=== PATIENT | male | born 1995 | race Caucasian/White ===

== ENCOUNTER 2016-08-06 01:48 | Emergency (ER) | payer BC, OTHER ==
[2016-08-06] MEDS ORDERED: Famotidine In NaCl 20 mg/50 ml Premix Bag ONE (02:28)
[2016-08-06] MEDS ORDERED: Ondansetron HCl/PF 4 MG/2 ML Vial ONE (02:28)
[2016-08-06 02:46] LABS: #Basophils 0.1 thou/uL (0.0-0.2); #Eosinphils 0.1 thou/uL (0.0-0.7); #Lymphocytes 0.7 thou/uL (1.20-3.40); #Monocytes 0.7 thou/uL (0.11-0.59); #Neutrophils 12.2 thou/uL (1.40-6.50); %Basophils 0.4 % (0.0-1.0); %Eosinophils 0.5 % (0.0-10.0); %Monocytes 5.1 % (0.0-10.0); Hematocrit 52.4 % (42.0-52.0); Mean Platelet Volume 7.3 fL (7.4-10.4); Red Blood Cell (RBC) Count 6.03 mill/uL (4.70-6.10); White Blood Cell (WBC) Count 13.8 thou/uL (4.8-10.8)
[2016-08-06] MEDS ORDERED: Promethazine HCl 25 MG/ML VIAL ONE (02:50)
[2016-08-06 02:56] LABS: ALT (SGPT) 17 U/L (0-55); AST (SGOT) 17 U/L (5-34); Alkaline Phosphatase 72 U/L (40-150); Anion Gap 17 mmol/L (10-20); BUN (Urea Nitrogen) 15 mg/dL (8.9-20.6); Bilirubin, Total 1.3 mg/dL (0.2-1.2); Calc. Creatinine Clearance 0 mL/min (70-130); Calcium 10.3 mg/dL (7.8-10.44); Carbon Dioxide 18 mmol/L (22-29); Chloride 108 mmol/L (98-107); Estimated GFR-MDRD Greater than 90; Globulin 3.3 g/dL (2.4-3.5); Lipase 21 U/L (8-78); Protein, Total 8.3 g/dL (6.0-8.3)
[2016-08-06 03:13] LABS: Blood, Urine Negative (Negative); Glucose, Urine (Dipstick) Negative (Negative); Ketone, Urine > or equal to 80 mg/dL (Negative); Nitrite Negative (Negative); Protein, Urine (Dipstick) 30 mg/dL (Neg-Trace); Urobilinogen 0.2 mg/dL (0.2-1.0)
[2016-08-06 03:15] LABS: Bilirubin Negative (Negative)
[2016-08-06 03:31] LABS: RBC/HPF 0-3 HPF (0-3); Squamous Epithelial 0-3 HPF (0-3); WBC/HPF 0-3 HPF (0-3)
--- NOTE | 2016-08-06 04:14 | ERRECORD ---
[facility] EMERGENCY RECORD HPI NAUSEA/VOMITING/DIARRHEA (02:11 JPIP) CHIEF COMPLAINT: Patient presents for evaluation of nausea, Patient presents for evaluation of vomiting, Number of times: 5-6, Denies diarrhea, Patient presents for evaluation of hematemesis, Number of times: 2-3, described as streaks of blood. HISTORIAN: History provided by patient. LOCATION MALE: Symptoms are generalized. QUALITY: Pain is dull in nature, described as aching, described as cramping. SEVERITY: Current severity of pain rated as 7/10. TIME COURSE: Sudden onset of symptoms, Date and time of onset was approx 2200, There has been no change in the patient's symptoms over time, are constant. ASSOCIATED WITH MALE: Associated with chills, No associated diarrhea, Associated with fever, subjective, Associated with loss of appetite, Associated with nausea, Associated with vomiting, Number of times: 5-6. EXACERBATED BY: Patient's condition exacerbated by nothing. RELIEVED BY: Patient's condition relieved by nothing. ROS (02:12 JPIP) CONSTITUTIONAL: Historian reports chills, reports fatigue, reports fever, reports malaise. EYES: Historian denies eye pain, denies eye redness. ENT: Historian denies dysphagia, denies rhinorrhea, denies sinus pain, denies sore throat. CARDIOVASCULAR: Historian denies chest pain, denies dyspnea on exertion. RESPIRATORY: Historian denies cough, denies shortness of breath. GI: Historian reports abdominal pain, denies diarrhea, reports hematemesis, reports nausea, reports vomiting. MUSCULOSKELETAL: Historian reports myalgias. SKIN: Historian denies rash, denies skin changes, denies skin lesions. NEUROLOGIC: Historian denies confusion, denies dizziness, denies lethargy. NOTES: All systems reviewed, negative except as described above. PAST MEDICAL HISTORY MEDICAL HISTORY: Notes: PT DENIES MEDICAL HX. (02:00 RAWI) MALE SURGICAL HISTORY: PT DENIES SURGICAL HX. (02:00 RAWI) PSYCHIATRIC HISTORY: Notes: ANXIETY, DEPRESSION. (02:00 RAWI) SOCIAL HISTORY: Patient drinks socially, Patient currently uses drugs, abuses marijuana, Patient currently &a-1R&a+25V*p+0X*[id number]*c202B*c15G*c2P*p-0X&a-25V&a+1R Name: Sarmad Vears : 1995 M21 MedRec: [id number] AcctNum: [id number] Prepared: Bernadette Aug 06, 2016 04:12 by Interface Page 1 of 4 pMD [facility] EMERGENCY RECORD uses tobacco, smokes cigarettes, 1/2 PPD. (02:00 RAWI) NOTES: Nursing records reviewed, Medication list reviewed. (02:14 JPIP) KNOWN ALLERGIES SEROquel CURRENT MEDICATIONS (02:02 RAWI) None VITAL SIGNS VITAL SIGNS: BP: 142/69, Pulse: 97, Resp: 18, Temp: 98.3 (Oral), Pain: 7, O2 sat: 98, Time: 08/06/2016 01:56. (01:56 RAWI) BP: 125/66, Pulse: 86, Resp: 16, O2 sat: 94 on Room Air, Time: 08/06/2016 03:00. (03:00 RAWI) BP: 108/48, Pulse: 94, Resp: 16, Temp: 100.5, Pain: 0, O2 sat: 98 on RA, Time: 08/06/2016 04:03. (04:03 RAWI) PHYSICAL EXAM (02:13 JPIP) CONSTITUTIONAL: Vital signs reviewed, Patient afebrile, Pulse normal, Blood pressure normal, Respiratory rate normal, Patient appears, ill appearing, Patient appears in pain, in mild pain distress, Patient alert and oriented to person, place and time. HEAD: Head exam included findings of head atraumatic, normocephalic. EYES: Eye exam included findings of eyelids normal to inspection, Conjunctiva normal, Sclera normal, no periorbital ecchymosis, no periorbital edema, no periorbital erythema. ENT: Pharynx exam normal, not injected, no swelling, symmetrical, Uvula exam normal, midline, no edema, Mouth exam included findings of, mucous membranes dry, mucous membranes tacky. NECK: Neck exam included findings of normal range of motion, Trachea midline, no cervical adenopathy, no tenderness. RESPIRATORY CHEST: Respiratory exam included findings of no respiratory distress, Breath sounds clear, No wheezing, No rales, No rhonchi, Breath sounds not absent, Breath sounds not diminished. CARDIOVASCULAR: Cardiovascular exam included findings of, rate tachycardic, rhythm regular, Heart sounds normal, no murmurs, no rub. ABDOMEN MALE: Abdominal exam included findings of abdomen tender, to the epigastric region, mild intensity, Bowel sounds, hypoactive, Liver normal, Spleen normal, no distension, no mass, no pulsatile masses, no peritoneal signs, no rigidity, no guarding, no rebound. BACK: no costovertebral angle tenderness. UPPER EXTREMITY: Upper extremity exam included findings of inspection normal, Range of motion normal. NEURO: Luis Enrique coma scale 15, Neuro exam findings include patient oriented to person, place and time, no focal motor deficits. &a-1R&a+25V*p+0X*n1928V*c202B*c15G*c2P*p-0X&a-25V&a+1R Name: Sarmad Veras : 1995 M21 MedRec: [id number] AcctNum: [id number] Prepared: [facility] Aug 06, 2016 04:12 by Interface Page 2 of 4 D [facility] EMERGENCY RECORD SKIN: Skin exam included findings of skin, Skin hot, dry, and normal in color, no rash. LYMPHATIC: Lymphatic exam included findings of cervical nodes normal, Submandibular normal. PSYCHIATRIC: Psychiatric exam included findings of patient oriented to person place and time, Normal affect. MEDICATION ADMINISTRATION SUMMARY Drug Name: Robinul injection, Dose Ordered: 0.2 mg, Route: IV Push, Status: Canceled, Time: 02:32 08/06/2016, Drug Name: Normal Saline, Dose Ordered: 1000 mL/hr, Route: IV Fluid Infusion, Status: Given, Time: 03:25 08/06/2016, Drug Name: *phenergan, Dose Ordered: * , Route: IV Fluid Infusion, Status: Given, Time: 02:56 08/06/2016, Drug Name: famotidine (PF)-NaCl (iso-os), Dose Ordered: 20 mg, Route: IV Piggy Back, Status: Given, Time: 02:45 08/06/2016, Drug Name: Zofran intravenous, Dose Ordered: 4 mg, Route: IV Push, Status: Given, Time: 02:42 08/06/2016, Drug Name: Normal Saline, Dose Ordered: 1000 mL/hr, Route: IV Fluid Infusion, Status: Given, Time: 02:41 08/06/2016, *Additional information available in notes, Detailed record available in Medication Service section. DOCTOR NOTES RE-EVALUATION: Routine re-evaluation, after administration of antiemetics, Routine re-evaluation, after administration of IV fluids, The patient's condition has improved. (03:42 JPIP) TEXT: Emesis with small hematemesis, emesis present in an emesis bag had no significant blood and there were no coffee grounds. (03:45 JPIP) PROBLEM LIST No recorded problems DIAGNOSIS (03:45 JPIP) FINAL: PRIMARY: Nausea with vomiting, ADDITIONAL: HEMATEMESIS. PRESCRIPTION (03:16 JPIP) Zofran ODT: TABLET, RAPID DISSOLVE : 4 mg : ORAL : Quantity: 1 Unit: tab(s) Route: ORAL Schedule: every 6 hours PRN Dispense: 10 May substitute. Refills: No Refills . NOTES: for nausea No refills. DISPOSITION PATIENT: Disposition Type: Discharge, Disposition: *Discharge Home, Condition: Improved. (03:45 JPIP) &a-1R&a+25V*p+0X*f7924X*c202B*c15G*c2P*p-0X&a-25V&a+1R Name: Sarmad Veras : 1995 M21 MedRec: [id number] AcctNum: [id number] Prepared: WedAug 06, 2016 04:12 by Interface Page 3 of 4 pMD [facility] EMERG[facility] RECORD Patient left the department. (04:09 RAWI) Estevez: DESTINY=DO Dove Joseph RAWI=CECELIA [place], [place] &a-1R&a+25V*p+0X*x5858S*c202B*c15G*c2P*p-0X&a-25V&a+1R Name: Sarmad Veras : 1995 M21 MedRec: [id number] AcctNum: [id number] Prepared: WedAug 06, 2016 04:12 by Interface Page 4 of 4 pMD MTDD
--- NOTE | 2016-08-06 04:30 | PICIS ---
[facility] EMERGENCY RECORD TRIAGE (01:55 RAWI) PATIENT: NAME: Sarmad Veras, AGE: 21, GENDER: male, : Sun 1995, TIME OF GREET: WedAug 06, 2016 01:49, PREFERRED LANGUAGE: Hungarian, ECODE BILLING MAP: [facility], Zip Code: [address], KG WEIGHT: 62.6 (est.), PHONE: , , , PERSON ID: [id number], PAYMENT: [employer]. (01:55 RAWI) ADMISSION: URGENCY: 3 Urgent, ADMISSION SOURCE: Home, TRANSPORT: Walk-in, BED: TRIAGE. (:55 RAWI) IMMUNIZATIONS: Flu vaccine not up to date, Tetanus immunization up to date, Pneumococcal vaccine not up to date. (02:00 RAWI) SIRS SCORING: Heart Rate 55-109 (0), Temp range 96.8-101.1 (0), respiratory rate 12-24 (0), Latest WBC 3-14.9 (0), Mental Status altered: no (0). (02:00 RAWI) TRIAGE SCREENING: Patient denies suicidal ideation, Patient denies presence of domestic violence. (02:00 RAWI) TREATMENTS IN PROGRESS: Treatments given Prehospital: NONE. (02:00 RAWI) PROVIDERS: TRIAGE NURSE: Cary Edge RN. (01:55 RAWI) KNOWN ALLERGIES SEROquel CURRENT MEDICATIONS (02:02 RAWI) None VITAL SIGNS VITAL SIGNS: BP: 142/69, Pulse: 97, Resp: 18, Temp: 98.3 (Oral), Pain: 7, O2 sat: 98, Time: 08/06/2016 01:56. (01:56 RAWI) BP: 125/66, Pulse: 86, Resp: 16, O2 sat: 94 on Room Air, Time: 08/06/2016 03:00. (03:00 RAWI) BP: 108/48, Pulse: 94, Resp: 16, Temp: 100.5, Pain: 0, O2 sat: 98 on RA, Time: 08/06/2016 04:03. (04:03 RAWI) NURSING ASSESSMENT: ABDOMEN (02:02 RAWI) CONSTITUTIONAL: Patient arrives ambulatory, Gait steady, History obtained from patient, Patient appears, uncomfortable, Patient cooperative, Patient alert, Oriented to person, place and time, Skin warm, Skin dry, Skin normal in color, Mucous membranes pink, Mucous membranes moist, Patient is well-groomed. PAIN: diffusely, Onset of pain 08/05/2016 20:00. ABDOMEN: Abdomen soft, tender, Bowel sound normal, Associated with nausea, Associated with vomiting, "EVERY 30-45 MINUTES SINCE 2230. IT WAS BRIGHT RED AT FIRST THEN IT WAS DARK RED", Notes: PT NOTES DRINKIN MORE ALCOHOL THIS WEEK THAN NORMAL. "A 12 PACK AND HALF A BOTTLE OF VODKA" PT GUARDING AND BODY SHAKING. SAFETY: Side rails up, Cart/Stretcher in lowest position, Family &a-1R&a+25V*p+0X*v0820T*c202B*c15G*c2P*p-0X&a-25V&a+1R Name: Sarmad Veras : 1995 M21 MedRec: [id number] AcctNum: [id number] Prepared: [facility] Aug 06, 2016 04:17 by Interface Page 1 of 11 pMD [facility] EMERGENCY RECORD at bedside, Call light within reach, Hospital ID band on. NURSING PROCEDURE: DISCHARGE NOTE (04:03 RAWI) DISCHARGE: Patient discharged to home, ambulating without assistance, family driving, accompanied by parent, Summary of Care printed/ provided, Discharge instructions given to patient, Discharge instructions given to mother, Simple or moderate discharge teaching performed, Prescriptions given and instructions on side effects given, Above person(s) verbalized understanding of discharge instructions and follow-up care, Patient treated and evaluated by physician. BELONGINGS: Belongings remain with patient, Valuables remain with patient. NOTES: Patient tolerated procedure well. VITAL SIGNS: BP: 108, / 48, Pulse: 94, Resp: 16, Temp: 100.5, Pain: 0, O2 sat: 98, on: RA. NURSING PROCEDURE: IV (02:35 RAWI) IV SITE 1: IV established, to the left forearm, using an 18 gauge catheter, in three attempts, Saline lock established, Labs drawn at time of placement, labeled in the presence of the patient and sent to lab, Notes: ESTABLISHED BY SHAKILA RAI. NURSING PROCEDURE: URINE COLLECTION (02:30 RAWI) PATIENT IDENTIFIER: Patient actively involved in identification process, Patient's identity verified by patient stating name, Patient's identity verified by patient stating date. URINE COLLECTION MALE: Urine collection indicated for LABS, Urine collected by void, output amount (mL) 100, urine yellow in color, and clear, Specimen labeled in the presence of the patient and sent to lab. SAFETY: Side rails up, Cart/Stretcher in lowest position, Family at bedside, Call light within reach, Hospital ID band on. ORDER DETAILS Order Name: CBC with Differential, Status: Active, Time: 02:08 08/06/2016, User: DESTINY, - Ordered for: DO Dove Joseph, - Entered by: DO Dove Joseph - WedAug 06, 2016 02:08, - Quantity: 1, Order Name: Comprehensive Metabolic Panel, Status: Active, Time: 02:08 08/06/2016, User: DESTINY, - Ordered for: DO Dove Joseph, - Entered by: DO Dove Joseph - WedAug 06, 2016 02:08, - Quantity: 1, Order Name: ERRT Pulse Oximeter ER, Status: Active, Time: 02:08 08/06/2016, User: DESTINY, - Ordered for: DO Dove Joseph, - Entered by: DO Dove Joseph - WedAug 06, 2016 02:08, &a-1R&a+25V*p+0X*p4346L*c202B*c15G*c2P*p-0X&a-25V&a+1R Name: Sarmad Veras : 1995 M21 MedRec: [id number] AcctNum: [id number] Prepared: WedAug 06, 2016 04:17 by Interface Page 2 of 11 D [facility] EMERGENCY RECORD - Quantity: 1, Order Name: Influenza A&B Ag Screen, Status: Active, Time: 02:10 08/06/2016, User: DESTINY, - Ordered for: DO Dove Joseph, - Entered by: DO Dove Joseph - WedAug 06, 2016 02:10, - Quantity: 1, Order Name: Lipase, Status: Active, Time: 02:08 08/06/2016, User: DESTINY, - Ordered for: DO Dove Joseph, - Entered by: DO Dove Joseph - [facility] Aug 06, 2016 02:08, - Quantity: 1, Order Name: SALINE LOCK, Status: Done, Time: 02:59 08/06/2016, User: KRYSTYNA, - Ordered for: DO Dove Joseph, - Entered by: DO Dove Joseph - [facility] Aug 06, 2016 02:08, - Quantity: 1, Order Name: Urinalysis with Microscopic, Status: Active, Time: 02:08 08/06/2016, User: DESTINY, - Ordered for: DO Dove Joseph, - Entered by: DO Dove Joseph - [facility] Aug 06, 2016 02:08, - Quantity: 1. MEDICATION ADMINISTRATION SUMMARY Drug Name: Robinul injection, Dose Ordered: 0.2 mg, Route: IV Push, Status: Canceled, Time: 02:32 08/06/2016, Drug Name: Normal Saline, Dose Ordered: 1000 mL/hr, Route: IV Fluid Infusion, Status: Given, Time: 03:25 08/06/2016, Drug Name: *phenergan, Dose Ordered: * , Route: IV Fluid Infusion, Status: Given, Time: 02:56 08/06/2016, Drug Name: famotidine (PF)-NaCl (iso-os), Dose Ordered: 20 mg, Route: IV Piggy Back, Status: Given, Time: 02:45 08/06/2016, Drug Name: Zofran intravenous, Dose Ordered: 4 mg, Route: IV Push, Status: Given, Time: 02:42 08/06/2016, Drug Name: Normal Saline, Dose Ordered: 1000 mL/hr, Route: IV Fluid Infusion, Status: Given, Time: 02:41 08/06/2016, *Additional information available in notes, Detailed record available in Medication Service section. MEDICATION SERVICE famotidine (PF)-NaCl (iso-os): Order: famotidine (PF)-NaCl (iso-os) (famotidine/sodium chloride, iso-osmotic/preservative free) - Dose: 20 mg : IV Piggy Back Schedule: Now Ordered by: Perry Dove DO Entered by: Perry Dove DO [facility] Aug 06, 2016 02:09 , Acknowledged by: Cary Edge RN [facility] Aug 06, 2016 02:13 Documented as given by: Cary Edge RN [facility] Aug 06, 2016 02:45 Patient, Medication, Dose, Route and Time verified prior to administration. Amount given: 20 MG, IV SITE #1 IVPB or drip, initial infusion, &a-1R&a+25V*p+0X*c7948S*c202B*c15G*c2P*p-0X&a-25V&a+1R Name: Sarmad Veras : 1995 M21 MedRec: [id number] AcctNum: [id number] Prepared: WedAug 06, 2016 04:17 by Interface Page 3 of 11 [facility] EMERGENCY RECORD Premixed, via primary tubing, on an IV pump, at 100 ml/hr, Catheter placement confirmed via flush prior to administration, IV site without signs or symptoms of infiltration during medication administration, No swelling during administration, No drainage during administration, IV flushed after administration, Correct patient, time, route, dose and medication confirmed prior to administration, Patient advised of actions and side-effects prior to administration, Allergies confirmed and medications reviewed prior to administration, Patient in position of comfort, Side rails up, Cart in lowest position, Family at bedside. : Follow Up : _IV SITE #1:_, Medication infusion discontinued, on WedAug 06, 2016 03:12, 30 minutes, ., Total amount infused: 100 ML, Advised not to ambulate without assistance, Patient in position of comfort, Side rails up, Cart in lowest position, Family at bedside. (03:12 RAWI) Normal Saline: Order: Normal Saline (0.9 % sodium chloride) - Dose: 1000 mL/hr : IV Fluid Infusion Schedule: Now Ordered by: Prery Dove DO Entered by: Perry Dove DO [facility] Aug 06, 2016 02:09 , Acknowledged by: Cary Edge RN [facility] Aug 06, 2016 02:14 Documented as given by: Cary Edge RN [facility] Aug 06, 2016 02:41 Patient, Medication, Dose, Route and Time verified prior to administration. Amount given: 1000 ML, IV SITE #1 IV fluids established for hydration, IV SITE #1 into left antecubital, IV SITE #1 1st bag hung, amount 1 Liter hung, via primary tubing, initial infusion, Catheter placement confirmed via flush prior to administration, IV site without signs or symptoms of infiltration during medication administration, No swelling during administration, No drainage during administration, IV flushed after administration, Correct patient, time, route, dose and medication confirmed prior to administration, Patient advised of actions and side-effects prior to administration, Allergies confirmed and medications reviewed prior to administration, Patient in position of comfort, Side rails up, Cart in lowest position, Family at bedside. : Follow Up : _IV SITE #1:_, IV fluid infusion discontinued, on WedAug 06, 2016 03:24, 45 minutes, ., Total amount infused: 1000 ML. (03:24 RAWI) Normal Saline: Order: Normal Saline (0.9 % sodium chloride) - Dose: 1000 mL/hr : IV Fluid Infusion Schedule: Now Ordered by: Perry Dove DO Entered by: Perry Dove DO [facility] Aug 06, 2016 03:02 , Acknowledged by: Cary Edge RN [facility] Aug 06, 2016 03:05 Documented as given by: Cary Edge RN [facility] Aug 06, 2016 03:25 Patient, Medication, Dose, Route and Time verified prior to administration. Amount given: 1000 ML, IV SITE #1 IV fluids established for hydration, IV SITE #1 into left antecubital, IV SITE #1 1st bag hung, &a-1R&a+25V*p+0X*d4343U*c202B*c15G*c2P*p-0X&a-25V&a+1R Name: Sarmad Veras : 1995 M21 MedRec: [id number] AcctNum: [id number] Prepared: WedAug 06, 2016 04:17 by Interface Page 4 of 11 D [facility] EMERGENCY RECORD amount 1 Liter hung, via primary tubing, Catheter placement confirmed via flush prior to administration, IV site without signs or symptoms of infiltration during medication administration, No swelling during administration, No drainage during administration, IV flushed after administration, Correct patient, time, route, dose and medication confirmed prior to administration, Patient advised of actions and side-effects prior to administration, Allergies confirmed and medications reviewed prior to administration, Patient in position of comfort, Side rails up, Cart in lowest position, Family at bedside. : Follow Up : _IV SITE #1:_, IV fluid infusion discontinued, on WedAug 06, 2016 04:07, 45 minutes, ., Total amount infused: 1000 mL, IV Discontinued with catheter intact. (04:07 RAWI) phenergan: Free Text order: phenergan : 12.5mg in 100ml NS. at 400 mls/hr : IV Fluid Infusion Ordered by: Perry Dove DO Entered by: Perry Dove DO [facility] Aug 06, 2016 02:33 , Acknowledged by: Cary Edge RN [facility] Aug 06, 2016 02:35 Documented as given by: Cary Edge RN [facility] Aug 06, 2016 02:56 Patient, Medication, Dose, Route and Time verified prior to administration. Amount given: 12.5 MG, IV SITE #1 IVPB or drip, subsequent infusion, IVPB mixed in: 100ml, Fluid: 0.9NS, Catheter placement confirmed via flush prior to administration, IV site without signs or symptoms of infiltration during medication administration, No swelling during administration, No drainage during administration, IV flushed after administration, Correct patient, time, route, dose and medication confirmed prior to administration, Patient advised of actions and side-effects prior to administration, Allergies confirmed and medications reviewed prior to administration, Patient in position of comfort, Side rails up, Cart in lowest position, Family at bedside. : Follow Up : _IV SITE #1:_, Medication infusion discontinued, on WedAug 06, 2016 03:25, 30 minutes, ., Total amount infused: 100 ML. (03:24 RAWI) Zofran intravenous: Order: Zofran intravenous (ondansetron HCl) - Dose: 4 mg : IV Push Schedule: Now Ordered by: Perry Dove DO Entered by: Perry Dove DO [facility] Aug 06, 2016 02:09 , Acknowledged by: Cary Edge RN [facility] Aug 06, 2016 02:14 Documented as given by: Cary Edge RN [facility] Aug 06, 2016 02:42 Patient, Medication, Dose, Route and Time verified prior to administration. Amount given: 4 MG, IV SITE #1 IVP, initial medication, Slowly, Catheter placement confirmed via flush prior to administration, IV site without signs or symptoms of infiltration during medication administration, No swelling during administration, No drainage during administration, IV flushed after administration, Correct patient, time, route, dose and medication confirmed prior to administration, Patient advised of actions and side-effects prior to administration, Allergies confirmed and medications reviewed prior to administration, &a-1R&a+25V*p+0X*e9211H*c202B*c15G*c2P*p-0X&a-25V&a+1R Name: Sarmad Veras : 1995 M21 MedRec: [id number] AcctNum: [id number] Prepared: WedAug 06, 2016 04:17 by Interface Page 5 of 11 pMD [facility] EMERGENCY RECORD Patient in position of comfort, Side rails up, Cart in lowest position, Family at bedside. (CANCELED) Robinul injection: Order: Robinul injection (glycopyrrolate) - Dose: 0.2 mg : IV Push Schedule: Now Ordered by: Perry Dove DO Entered by: Perry Dove DO [facility] Aug 06, 2016 02:09 , Acknowledged by: Cary Edge RN [facility] Aug 06, 2016 02:14 Canceled by: Perry Dove DO. [facility] Aug 06, 2016 02:32 Cancel reason: Change in medication plan:out of stock. HPI NAUSEA/VOMITING/DIARRHEA (02:11 JPIP) CHIEF COMPLAINT: Patient presents for evaluation of nausea, Patient presents for evaluation of vomiting, Number of times: 5-6, Denies diarrhea, Patient presents for evaluation of hematemesis, Number of times: 2-3, described as streaks of blood. HISTORIAN: History provided by patient. LOCATION MALE: Symptoms are generalized. QUALITY: Pain is dull in nature, described as aching, described as cramping. SEVERITY: Current severity of pain rated as 7/10. TIME COURSE: Sudden onset of symptoms, Date and time of onset was approx 2200, There has been no change in the patient's symptoms over time, are constant. ASSOCIATED WITH MALE: Associated with chills, No associated diarrhea, Associated with fever, subjective, Associated with loss of appetite, Associated with nausea, Associated with vomiting, Number of times: 5-6. EXACERBATED BY: Patient's condition exacerbated by nothing. RELIEVED BY: Patient's condition relieved by nothing. ROS (02:12 JPIP) CONSTITUTIONAL: Historian reports chills, reports fatigue, reports fever, reports malaise. EYES: Historian denies eye pain, denies eye redness. ENT: Historian denies dysphagia, denies rhinorrhea, denies sinus pain, denies sore throat. CARDIOVASCULAR: Historian denies chest pain, denies dyspnea on exertion. RESPIRATORY: Historian denies cough, denies shortness of breath. GI: Historian reports abdominal pain, denies diarrhea, reports hematemesis, reports nausea, reports vomiting. MUSCULOSKELETAL: Historian reports myalgias. SKIN: Historian denies rash, denies skin changes, denies skin lesions. NEUROLOGIC: Historian denies confusion, denies dizziness, denies lethargy. &a-1R&a+25V*p+0X*u0502W*c202B*c15G*c2P*p-0X&a-25V&a+1R Name: Sarmad Veras : 1995 M21 MedRec: [id number] AcctNum: [id number] Prepared: [facility] Aug 06, 2016 04:17 by Interface Page 6 of 11 pMD [facility] EMERGENCY RECORD NOTES: All systems reviewed, negative except as described above. PAST MEDICAL HISTORY MEDICAL HISTORY: Notes: PT DENIES MEDICAL HX. (02:00 RAWI) MALE SURGICAL HISTORY: PT DENIES SURGICAL HX. (02:00 RAWI) PSYCHIATRIC HISTORY: Notes: ANXIETY, DEPRESSION. (02:00 RAWI) SOCIAL HISTORY: Patient drinks socially, Patient currently uses drugs, abuses marijuana, Patient currently uses tobacco, smokes cigarettes, 1/2 PPD. (02:00 RAWI) NOTES: Nursing records reviewed, Medication list reviewed. (02:14 JPIP) PHYSICAL EXAM (02:13 JPIP) CONSTITUTIONAL: Vital signs reviewed, Patient afebrile, Pulse normal, Blood pressure normal, Respiratory rate normal, Patient appears, ill appearing, Patient appears in pain, in mild pain distress, Patient alert and oriented to person, place and time. HEAD: Head exam included findings of head atraumatic, normocephalic. EYES: Eye exam included findings of eyelids normal to inspection, Conjunctiva normal, Sclera normal, no periorbital ecchymosis, no periorbital edema, no periorbital erythema. ENT: Pharynx exam normal, not injected, no swelling, symmetrical, Uvula exam normal, midline, no edema, Mouth exam included findings of, mucous membranes dry, mucous membranes tacky. NECK: Neck exam included findings of normal range of motion, Trachea midline, no cervical adenopathy, no tenderness. RESPIRATORY CHEST: Respiratory exam included findings of no respiratory distress, Breath sounds clear, No wheezing, No rales, No rhonchi, Breath sounds not absent, Breath sounds not diminished. CARDIOVASCULAR: Cardiovascular exam included findings of, rate tachycardic, rhythm regular, Heart sounds normal, no murmurs, no rub. ABDOMEN MALE: Abdominal exam included findings of abdomen tender, to the epigastric region, mild intensity, Bowel sounds, hypoactive, Liver normal, Spleen normal, no distension, no mass, no pulsatile masses, no peritoneal signs, no rigidity, no guarding, no rebound. BACK: no costovertebral angle tenderness. UPPER EXTREMITY: Upper extremity exam included findings of inspection normal, Range of motion normal. NEURO: [place] coma scale 15, Neuro exam findings include patient oriented to person, place and time, no focal motor deficits. SKIN: Skin exam included findings of skin, Skin hot, dry, and normal in color, no rash. LYMPHATIC: Lymphatic exam included findings of cervical nodes &a-1R&a+25V*p+0X*d3519M*c202B*c15G*c2P*p-0X&a-25V&a+1R Name: Sarmad Veras : 1995 M21 MedRec: [id number] AcctNum: [id number] Prepared: WedAug 06, 2016 04:17 by Interface Page 7 of 11 pMD [facility] EMERGENCY RECORD normal, Submandibular normal. PSYCHIATRIC: Psychiatric exam included findings of patient oriented to person place and time, Normal affect. LAB INTERPRETATION INTERPRETATION: I reviewed the lab results, All labs normal except as noted below, CBC abnormal, White blood cell count elevated, Chemistry abnormal, Chloride elevated, Glucose elevated, Bicarbonate decreased, Liver functions abnormal, Total bilirubin elevated, Lipase normal. (02:59 JPIP) Urinalysis abnormal, positive for ketones, Influenza negative. (03:43 JPIP) EVENTS TRANSFER: Triage to Emergency Triage. (WedAug 06, 2016 01:55 RAWI) Emergency Triage to Emergency Room -02. (02:01 RAWI) Removed from Emergency Emergency Room -02. (04:09 RAWI) O2SAT INTERPRETATION (02:10 JPIP) O2SAT: Continuous pulse oximetry, Oxygen saturation 98%, on room air, Oxygen saturation interpretation: Normal, No intervention required. DOCTOR NOTES RE-EVALUATION: Routine re-evaluation, after administration of antiemetics, Routine re-evaluation, after administration of IV fluids, The patient's condition has improved. (03:42 JPIP) TEXT: Emesis with small hematemesis, emesis present in an emesis bag had no significant blood and there were no coffee grounds. (03:45 JPIP) PROBLEM LIST No recorded problems DIAGNOSIS (03:45 JPIP) FINAL: PRIMARY: Nausea with vomiting, ADDITIONAL: HEMATEMESIS. DISPOSITION PATIENT: Disposition Type: Discharge, Disposition: *Discharge Home, Condition: Improved. (03:45 JPIP) Patient left the department. (04:09 RAWI) INSTRUCTION (03:59 JPIP) DISCHARGE: NAUSEA VOMITING 5YADULT. FOLLOWUP: Miko ROME, [facility], [address] [place] [address], [facility] [id number], [phone]. SPECIAL: Follow up with Primary Care Physician within 72 hours &a-1R&a+25V*p+0X*m5389T*c202B*c15G*c2P*p-0X&a-25V&a+1R Name: Sarmad Veras : 1995 M21 MedRec: [id number] AcctNum: [id number] Prepared: WedAug 06, 2016 04:17 by Interface Page 8 of 11 pMD [facility] EMERGENCY RECORD Return to the Emergency Department for increased symptoms problems or concerns. PRESCRIPTION (03:16 JPIP) Zofran ODT: TABLET, RAPID DISSOLVE : 4 mg : ORAL : Quantity: 1 Unit: tab(s) Route: ORAL Schedule: every 6 hours PRN Dispense: 10 May substitute. Refills: No Refills . NOTES: for nausea No refills. RESULTS LABORATORY: CBC with Differential Collection DT: WedAug 06, 2016 02:36, *White Blood Cell (WBC) Count 13.8 - H thou/uL, Range (4.8-10.8), Red Blood Cell (RBC) Count 6.03 mill/uL, Range (4.70-6.10), Hemoglobin 17.5 g/dL, Range (14.0-18.0), *Hematocrit 52.4 - H %, Range (42.0-52.0), Mean Corpuscular Volume 86.8 fl, Range (80.0-94.0), Mean Corpuscular Hemoglobin 29.1 pg, Range (27.0-31.0), Mean Corpuscular HGB CONC 33.5 g/dL, Range (32.0-36.0), *RBC Distribution Width 11.0 - L %, Range (11.5-14.5), Platelet Count 259 thou/uL, Range (130-400), *Mean Platelet Volume 7.3 - L fL, Range (7.4-10.4), *%Neutrophils 88.6 - H %, Range (42.0-75.0), *%Lymphocytes 5.4 - L %, Range (21.0-51.0), %Monocytes 5.1 %, Range (0.0-10.0), %Eosinophils 0.5 %, Range (0.0-10.0), %Basophils 0.4 %, Range (0.0-1.0), *#Neutrophils 12.2 - H thou/uL, Range (1.40-6.50), *#Lymphocytes 0.7 - L thou/uL, Range (1.20-3.40), *#Monocytes 0.7 - H thou/uL, Range (0.11-0.59), #Eosinphils 0.1 thou/uL, Range (0.0-0.7), #Basophils 0.1 thou/uL, Range (0.0-0.2). (02:50 [facility]) Lipase Collection DT: WedAug 06, 2016 02:36, Lipase 21 U/L, Range (8-78). (02:59 [facility]) Comprehensive Metabolic Panel Collection DT: WedAug 06, 2016 02:36, Sodium 139 mmol/L, Range (136-145), Potassium 3.8 mmol/L, Range (3.5-5.1), *Chloride 108 - H mmol/L, Range (98-107), *Carbon Dioxide 18 - L mmol/L, Range (22-29), Anion Gap 17 mmol/L, Range (10-20), BUN (Urea Nitrogen) 15 mg/dL, Range (8.9-20.6), Creatinine 0.99 mg/dL, Range (0.7-1.3), Estimated GFR-MDRD Greater than 90 , Reference Range for Estimated GFR: Greater than 90, mL/min/1.73 m2 NOTE: &a-1R&a+25V*p+0X*e0796B*c202B*c15G*c2P*p-0X&a-25V&a+1R Name: Sarmad Veras : 1995 M21 MedRec: [id number] AcctNum: [id number] Prepared: WedAug 06, 2016 04:17 by Interface Page 9 of 11 D [facility] EMERGENCY RECORD The MDRD equation has not been validated for use, with the elderly (over 70 years of age), women, patients with, serious comorbid condition or persons with extremes of body size, muscle, mass, or nutritional status. , *Glucose 128 - H mg/dL, Range (70-105), Calcium 10.3 mg/dL, Range (7.8-10.44), *Bilirubin, Total 1.3 - H mg/dL, Range (0.2-1.2), Protein, Total 8.3 g/dL, Range (6.0-8.3), NOTE: Plasma values are generally 0.3 to 0.5 g/dL higher than serum values, due to the presence of fibrinogen. , Albumin 5.0 g/dL, Range (3.5-5.0), Globulin 3.3 g/dL, Range (2.4-3.5), Alb/Glob Ratio 1.5 g/dL, Range (1.2-2.2), Alkaline Phosphatase 72 U/L, Range (40-150), AST (SGOT) 17 U/L, Range (5-34), ALT (SGPT) 17 U/L, Range (0-55). (02:59 IP) Urinalysis with Microscopic Collection DT: WedAug 06, 2016 03:06, Color Yellow , Range (Yellow), Clarity Hazy , Range (Clear), Specific [place], Urine 1.025 , Range (1.005-1.030), pH, Urine 7.5 , Range (5.0-9.0), Leukocyte Negative , Range (Negative), Nitrite Negative , Range (Negative), *Protein, Urine (Dipstick) 30 - H mg/dL, Range (Neg-Trace), Glucose, Urine (Dipstick) Negative mg/dL, Range (Negative), *Ketone, Urine > or equal to 80 - mg/dL, * H , Range (Negative), Urobilinogen 0.2 mg/dL, Range (0.2-1.0), Bilirubin Negative , Range (Negative), , Blood, Urine Negative , Range (Negative), RBC/HPF 0-3 HPF, Range (0-3), WBC/HPF 0-3 HPF, Range (0-3), Squamous Epithelial 0-3 HPF, Range (0-3). (03:43 [facility]) MICROBIOLOGY: Influenza A&B Ag Screen: [id number] Collection DT: WedAug 06, 2016 03:06, See comment below , @ ER ROOM#: [id number] Source: Nasal swab Spec Desc: , Influenza A Antigen: NEGATIVE for the , presence of , INFLUENZA A Antigen , Influenza B Antigen: NEGATIVE for the , presence of , INFLUENZA B Antigen , The rapid Flu A&B test can distinguish between influenza A , Influenza A&B Ag Screen See comment below , and B viruses, but it does not differentiate influenza , Influenza A&B Ag Screen See comment below , subtypes. , Influenza A&B Ag Screen See comment below , Influenza A&B Ag Screen See comment below , &a-1R&a+25V*p+0X*[id number]*c202B*c15G*c2P*p-0X&a-25V&a+1R Name: Sarmad Veras : 1995 M21 MedRec: [id number] AcctNum: [id number] Prepared: WedAug 06, 2016 04:17 by Interface Page 10 of 11 pMD [facility] EMERGENCY RECORD Influenza A&B Ag Screen See comment below , Influenza A&B Ag Screen See comment below , characteristics of this device with human specimens infected , Influenza A&B Ag Screen See comment below , with the 2009 H1N1 influenza virus have not been , Influenza A&B Ag Screen See comment below , established. For example: this test cannot distinguish , Influenza A&B Ag Screen See comment below , influenza infections caused by novel H1N1 influenza A , Influenza A&B Ag Screen See comment below , viruses versus seasonal influenza A viruses. , Influenza A&B Ag Screen See comment below , , Influenza A&B Ag Screen See comment below , A negative result does not exclude influenza virus , Influenza A&B Ag Screen See comment below , infection; therefore, if more conclusive testing is desired, , Influenza A&B Ag Screen See comment below , follow up confirmatory testing is warranted., Influenza A&B Ag Screen See comment below . (03:43 DESTINY) Estevez: DESTINY=DO Dove Joseph RAWI=CECELIA Edge, [place] &a-1R&a+25V*p+0X*r9207C*c202B*c15G*c2P*p-0X&a-25V&a+1R Name: Sarmad Veras : 1995 M21 MedRec: [id number] AcctNum: [id number] Prepared: Bernadette Aug 06, 2016 04:17 by Interface Page 11 of 11 pMD MTDD
== END 2016-08-06 04:08 | disposition home or self-care (01) ==
LOC: BURERS 01:48
DX: K92.0 Hematemesis (principal); F41.9 Anxiety disorder, unspecified; F32.9 Major depressive disorder, single episode, unspecified; F17.210 Nicotine dependence, cigarettes, uncomplicated
CPT/HCPCS: 80053; 81001; 83690; 85025; 94760; 96361; 96365; 96368; 96375; J2405; J2550